=== PATIENT | male | born 1950 | race Caucasian/White ===

== ENCOUNTER 2016-11-22 13:17 | Emergency (ER) | payer MEDICARE, OTHER ==
[~2016-11-22] VITALS: Ht 167.6 cm; Wt 70.9 kg
[~2016-11-22 13:17] MED LIST: ASPI81 PO; DOXA1 PO; GABA-531 PO; HYDR-4031 PO; METF500T4 PO; SERT100T12 PO; SIMV-259 PO; TRAZ-147 PO
[2016-11-22] MEDS ORDERED: METF500T4 PO (13:24)
[2016-11-22] MEDS ORDERED: BUPR75 PO (13:24)
[2016-11-22 13:45] LABS: APPEARANCE,URINE CLEAR (CLEAR); GLUCOSE, URINE (UA) NEGATIVE (NEGATIVE); KETONES,URINE NEGATIVE (NEGATIVE); LEUKOCYTE ESTERASE ,URINE MODERATE (NEGATIVE); OCCULT BLOOD,URINE LARGE (NEGATIVE); PROTEIN,URINE NEGATIVE (NEGATIVE)
[2016-11-22 13:46] LABS: ADD UA MICROSCOPIC YES
[2016-11-22 13:53] LABS: RBC,URINE 26-50 /HPF (0-2)
[2016-11-22 13:54] LABS: SQUAMOUS EPITHELIAL CELL,UR Few /LPF (None Seen)
[2016-11-22] MEDS ORDERED: PHENAZOPYRIDINE HCL 100 MG TABLET PO ONE (14:15)
[2016-11-22] MEDS ORDERED: CIPROFLOXACIN HCL 250 MG TABLET PO ONE (14:15)
[2016-11-22] MEDS ORDERED: CefTRIAXone SODIUM 1 GM/VIAL IM ONE (14:30)
[2016-11-22] MEDS ORDERED: LIDOCAINE HCL/PF 1% 2 ML VIAL IM ONE (14:30)
[2016-11-22 14:50] VITALS: BP 121/79
== END 2016-11-22 14:52 | disposition home or self-care (01) ==
LOC: EMS 13:19
DX: N39.0 Urinary tract infection, site not specified (principal); E11.9 Type 2 diabetes mellitus without complications; I10 Essential (primary) hypertension; E78.00 Pure hypercholesterolemia, unspecified; Z88.1 Allergy status to other antibiotic agents; Z79.82 Long term (current) use of aspirin
CPT/HCPCS: 81001; 87086; 96372; 99284; J0696; J3490

== ENCOUNTER 2016-11-28 09:18 | Emergency (ER) | payer MEDICARE, OTHER ==
[~2016-11-28] VITALS: Ht 167.6 cm; Wt 70.5 kg
[~2016-11-28 09:18] MED LIST changes: +ATEN50TA PO; +BACTSS PO; +BUPR75 PO; +DICL250 PO; +LISI-661 PO
[2016-11-28 09:21] VITALS: BP 158/75
[2016-11-28 09:32] LABS: GLUCOSE,POINT OF CARE 102 MG/DL (70-110)
[2016-11-28 10:52] LABS: APPEARANCE,URINE CLEAR (CLEAR); GLUCOSE, URINE (UA) NEGATIVE (NEGATIVE); KETONES,URINE NEGATIVE (NEGATIVE); LEUKOCYTE ESTERASE ,URINE TRACE (NEGATIVE); OCCULT BLOOD,URINE SMALL (NEGATIVE); PROTEIN,URINE NEGATIVE (NEGATIVE)
[2016-11-28 10:57] LABS: SQUAMOUS EPITHELIAL CELL,UR Few /LPF (None Seen)
== END 2016-11-28 11:39 | disposition home or self-care (01) ==
LOC: EMS 09:21
DX: R30.0 Dysuria (principal); E11.9 Type 2 diabetes mellitus without complications; E78.00 Pure hypercholesterolemia, unspecified; I10 Essential (primary) hypertension; N40.0 Benign prostatic hyperplasia without lower urinary tract symptoms; Z79.82 Long term (current) use of aspirin; Z87.440 Personal history of urinary (tract) infections; Z88.2 Allergy status to sulfonamides; Z87.442 Personal history of urinary calculi
CPT/HCPCS: 82962; 99283